=== PATIENT | male | born 1960 | race Caucasian/White ===

== ENCOUNTER 2020-02-23 01:49 | Emergency (ER) | payer MEDICAID ==
[~2020-02-23] VITALS: Ht 182.9 cm; Wt 72.7 kg
[2020-02-23 01:53] VITALS: Ht 182.9 cm; Wt 72.7 kg
[2020-02-23 03:01] LABS: CALC OSMOLALITY 279 mosm/kg (275-300); CALCIUM 8.2 mg/dL (8.5-10.1); CARBON DIOXIDE 23.8 mmol/L (21.0-32.0); CHLORIDE - SERUM 106 mmol/L (98-107); CREATININE - SERUM 0.9 mg/dL (0.6-1.3); GLUCOSE 95 mg/dL (74-106); HEMATOCRIT 43.5 % (42.0-54.0); HEMOGLOBIN 14.8 g/dL (13.5-17.5); LYMPHOCYTES 26.5 % (15-50); MCH 32.8 pg (26.0-34.0); MCV 96.5 fL (80.0-100.0); MEAN PLATELET VOLUME 8.7 fL (7.4-10.4); NEUTROPHILS 63.8 % (40-80); PLATELET COUNT 185 10x3/uL (130-400); POTASSIUM - SERUM 3.4 mmol/L (3.5-5.1); RBC 4.51 10x6/uL (4.20-6.10); RDW 13.2 % (11.5-14.5); SODIUM 141 mmol/L (136-145); UREA NITROGEN 11 mg/dL (7-18); WBC 8.4 10x3/uL (4.8-10.8); eGFR NON AFRICAN AMERICAN > 90 mL/min (90-120)
[2020-02-23 03:09] LABS: ALBUMIN 3.2 g/dL (3.4-5.0); ALKALINE PHOSPHATASE 66 U/L (30-120); ALT (SGPT) 27 U/L (10-68); BILIRUBIN - TOTAL 0.22 mg/dL (0.2-1.3); PROTEIN - SERUM 6.9 g/dL (6.4-8.2)
[2020-02-23 03:27] LABS: BILIRUBIN NEGATIVE (NEGATIVE); GLUCOSE NEGATIVE (NEGATIVE); KETONE NEGATIVE (NEGATIVE); NITRITE NEGATIVE (NEGATIVE); UROBILINOGEN NORMAL (NORMAL)
[2020-02-23 03:39] LABS: UDS - AMPHET NEGATIVE QUAL (NEGATIVE); UDS - BARB NEGATIVE QUAL (NEGATIVE); UDS - BENZO NEGATIVE QUAL (NEGATIVE); UDS - COCAINE NEGATIVE QUAL (NEGATIVE); UDS - OPIATE NEGATIVE QUAL (NEGATIVE); UDS - PCP NEGATIVE QUAL (NEGATIVE); UDS - THC NEGATIVE QUAL (NEGATIVE)
[2020-02-23 06:40] VITALS: BP 130/80
== END 2020-02-23 06:41 | disposition home or self-care (01) ==
LOC: D.ER 01:49
PROVIDERS: Family Medicine
DX: M25.511 Pain in right shoulder (principal); W19.XXXA Unspecified fall, initial encounter; Y93.9 Activity, unspecified; Y92.9 Unspecified place or not applicable